=== PATIENT | female | born 1970 | race Caucasian/White ===

== ENCOUNTER 2024-02-18 08:16 | Day surgery (SDC) | payer OTHER ==
[2024-02-18] MEDS ORDERED: Depo-Medrol 40 MG/ML IM ONE (08:17)
[2024-02-18] MEDS ORDERED: BUPIVACAINE 0.5% VIAL IJ ONE (08:17)
[2024-02-18] MEDS ORDERED: Lactated Ringers 1,000 ML IV ONE (10:17)
[2024-02-18] MEDS ORDERED: DIPRIVAN 200 MG/20 ML IV ONE (10:28)
--- NOTE | 2024-02-18 11:51 | XRAY ---
Indication: Left knee injection. Intraoperative fluoroscopy provided for 6 seconds. Single digital spot image submitted for interpretation demonstrates needle tip projecting over left femur intercondylar notch. Small amount of contrast injected for needle tip placement.. Correlate with intraoperative findings/report.
--- NOTE | 2024-02-18 11:51 | XRAY ---
Indication: Left hip injection. Intraoperative fluoroscopy provided for 6 seconds. Single digital spot image submitted for interpretation demonstrates needle tip projecting lateral to left femur head. Small amount of contrast injected for needle tip placement.. Correlate with intraoperative findings/report.
--- NOTE | 2024-02-18 12:20 | XRAY ---
7 seconds of fluoroscopy was used in surgery for a left intra-articular hip injection.
--- NOTE | 2024-02-18 12:20 | XRAY ---
6 seconds of fluoroscopy was used in surgery for a left intra-articular knee injection.
== END 2024-02-18 10:59 | disposition home or self-care (01) ==
LOC: SDC-PAIN 08:16
PROVIDERS: ATTEND Psychiatry & Neurology Pain Medicine
DX: M16.12 Unilateral primary osteoarthritis, left hip (principal); E11.9 Type 2 diabetes mellitus without complications
CPT/HCPCS: 20610; 73501; 73560; 77002; 82947; J1010; J2704; Q9966; J1030

== ENCOUNTER 2024-04-21 15:23 | Day surgery (SDC) | payer OTHER ==
--- NOTE | 2024-04-21 20:54 | XRAY ---
Indication: Left knee injection. Intraoperative fluoroscopy provided for 8 seconds. Single digital spot image submitted for interpretation demonstrates needle tip projecting over left femur intercondylar notch. Small amount of contrast injected for needle tip placement. Correlate with intraoperative findings/report.
--- NOTE | 2024-04-21 20:56 | XRAY ---
8 seconds of fluoroscopy used in surgery for a left intra-articular knee injection.
== END 2024-04-21 18:12 | disposition home or self-care (01) ==
LOC: SDC-PAIN 15:23
PROVIDERS: ATTEND Psychiatry & Neurology Pain Medicine
DX: M17.12 Unilateral primary osteoarthritis, left knee (principal); E11.9 Type 2 diabetes mellitus without complications
CPT/HCPCS: 20610; 73560; 77002; 82947; Q9966

== ENCOUNTER 2024-04-28 16:02 | Day surgery (SDC) | payer OTHER ==
[2024-04-28] MEDS ORDERED: SYNVISC 16 MG/2 ML SYRINGE IU ONE (16:03)
[2024-04-28] MEDS ORDERED: XYLOCAINE-MPF 1% 5ML SDV IJ ONE (16:03)
--- NOTE | 2024-04-28 19:17 | XRAY ---
Indication: Left knee injection. Intraoperative fluoroscopy provided for 15 seconds. 2 digital spot images submitted for interpretation demonstrates needle tip projecting over the left femur intercondylar notch. Small amount of contrast injected for needle tip placement. Correlate with intraoperative findings/report.
--- NOTE | 2024-04-29 09:28 | XRAY ---
15 seconds of fluoroscopy was used in surgery for a left intra-articular knee injection.
== END 2024-04-28 18:48 | disposition home or self-care (01) ==
LOC: SDC-PAIN 16:02
PROVIDERS: ATTEND Psychiatry & Neurology Pain Medicine
DX: M17.12 Unilateral primary osteoarthritis, left knee (principal); E11.9 Type 2 diabetes mellitus without complications
CPT/HCPCS: 20610; 73560; 77002; 82947; J7325; Q9966

== ENCOUNTER 2024-05-12 15:56 | Day surgery (SDC) | payer OTHER ==
[2024-05-12] MEDS ORDERED: LIDOCAINE HCL 1% 50 MG/5 ML VL PF IJ ONE (15:57)
[2024-05-12] MEDS ORDERED: SYNVISC 16 MG/2 ML SYRINGE IU ONE (15:57)
--- NOTE | 2024-05-12 19:14 | XRAY ---
Indication: Left knee injection. Intraoperative fluoroscopy provided for 9 seconds. Single digital spot images submitted for interpretation demonstrates needle tip projecting over left femur intercondylar notch. Small amount of contrast injected for needle tip placement. Correlate with intraoperative findings/report.
--- NOTE | 2024-05-14 07:57 | XRAY ---
9 seconds of fluoroscopy was used in surgery for a left intra-articular knee injection.
== END 2024-05-12 18:16 | disposition home or self-care (01) ==
LOC: SDC-PAIN 15:56
PROVIDERS: ATTEND Psychiatry & Neurology Pain Medicine
DX: M17.12 Unilateral primary osteoarthritis, left knee (principal); E11.9 Type 2 diabetes mellitus without complications
CPT/HCPCS: 20610; 73560; 77002; 82947; J2001; J7325; Q9966